=== PATIENT | male | born 1960 | race Native Hawaiian/Other Pacific Islander ===

== ENCOUNTER 2020-08-19 08:39 | Emergency (ER) | payer OTHER ==
[~2020-08-19] VITALS: Ht 180.3 cm; Wt 103.4 kg
[2020-08-19 08:48] VITALS: TEMP 98.5
[2020-08-19 10:13] VITALS: BP 150/99
== END 2020-08-19 10:15 | disposition home or self-care (01) ==
LOC: ED 08:39
PROC: 0HCDXZZ Extirpation of Matter from Right Lower Arm Skin, External Approach (ICD-10-PCS; principal; 2020-08-19)
DX: S50.851A Superficial foreign body of right forearm, initial encounter (principal); W45.8XXA Other foreign body or object entering through skin, initial encounter; Y92.89 Other specified places as the place of occurrence of the external cause
CPT/HCPCS: 90471; 90715; 96372; 99283

== ENCOUNTER 2020-08-25 09:06 | Outpatient (CLI) | payer OTHER | END 2020-08-25 20:57 | disposition home or self-care (01) | LOC: RAD 09:06 | PROVIDERS: ATTEND Internal Medicine | DX: M25.562 Pain in left knee (principal) ==